=== PATIENT | female | born 1990 | race American Indian/Alaskan Native ===

== ENCOUNTER 2020-06-26 16:52 | Emergency (ER) | payer SELFPAY ==
[2020-06-26 17:15] VITALS: BP 138/68
[2020-06-26] MEDS ORDERED: KETOROLAC 30 MG/1 ML INJ IM ONE (17:45)
--- NOTE | 2020-06-26 17:49 | Emergency Department Report ---
ED Back Pain/Injury HPI - General Chief Complaint: Back Pain/Injury Stated Complaint: BACK/CARLITA LEG PAIN Source: patient Limitations: No Limitations - History of Present Illness Initial Comments: 30-year-old -[place] female presents to the emergency room reporting back pain for a week. Patient reports that the pain shoots down both legs is worse with sitting to standing or standing from long periods. Patient states she has been taking ibuprofen and has used [id number] liniment with no true results. Patient denies any injury. Patient reports she has an IUD in place. Complaint: back pain Onset/Timin -: week(s) Similar Symptoms Previously: No Radiation: buttocks, left leg, right leg Severity scale (0 -10): 10 Quality: burning, sharp, stabbing Consistency: constant Improves With: none Worsens With: movement Context: unknown Associated Symptoms: denies other symptoms - Related Data Previous Rx's Medication Instructions Recorded Last Taken Type Diclofenac Sodium 50 mg PO BID #20 tablet. 06/26/20 Unknown Rx Allergies Allergy/AdvReac Type Severity Reaction Status Date / Time No Known Allergies Allergy Unverified 06/26/20 17:09 ED Review of Systems ROS: Stated complaint: BACK/CARLITA LEG PAIN Other details as noted in HPI Comment: All other systems reviewed and negative ED Past Medical Hx - Past Medical History Previous Medical History?: No - Surgical History Past Surgical History?: No - Social History Smoking Status: Never Smoker Substance Use Type: Alcohol - Medications Home Medications: Home Medications Medication Instructions Recorded Confirmed Last Taken Type Diclofenac Sodium 50 mg PO BID #20 tablet. 06/26/20 Unknown Rx ED Physical Exam - General Limitations: No Limitations General appearance: alert, in no apparent distress - Head Head exam: Present: atraumatic, normocephalic - Eye Eye exam: Present: normal appearance - ENT ENT exam: Present: mucous membranes moist - Neck Neck exam: Present: normal inspection, full ROM - Respiratory Respiratory exam: Absent: accessory muscle use - Cardiovascular Cardiovascular Exam: Present: regular rate, normal rhythm. Absent: systolic murmur, diastolic murmur, rubs, gallop - Extremities Exam Extremities exam: Present: full ROM - Expanded Back Exam Expanded Back exam: Sciatic Notch Tenderness: Left, Right, Positive Straight Leg Raise: Left, Right - Neurological Exam Neurological exam: Present: alert, oriented X3 - Psychiatric Psychiatric exam: Present: normal affect, normal mood - Skin Skin exam: Present: warm, dry, intact, normal color. Absent: rash ED Course Vital Signs 06/26/20 17:12 Temperature 99 F Pulse Rate 100 H Respiratory 20 Rate Blood Pressure 138/68 O2 Sat by Pulse 100 Oximetry ED Medical Decision Making - Medical Decision Making 30-year-old -[place] female presents to the emergency room reporting back pain for a week. Patient reports that the pain shoots down both legs is worse with sitting to standing or standing from long periods. Patient states she has been taking ibuprofen and has used [id number] liniment with no true results. Patient denies any injury. Patient reports she has an IUD in place. Patient will be given a Toradol injection. Patient is discharged home on diclofenac's and to follow-up with a primary care provider. Handout for sciatica will be given. Critical care attestation.: If time is entered above; I have spent that time in minutes in the direct care of this critically ill patient, excluding procedure time. ED Disposition Clinical Impression: Lumbar back pain with radiculopathy affecting lower extremity Sciatica Qualifiers: Laterality: bilateral Qualified Code(s): M54.31 - Sciatica, right side; M54.32 - Sciatica, left side Disposition: - TO HOME OR SELFCARE Is pt being admited?: No Does the pt Need Aspirin: No Condition: Stable Instructions: Sciatica Additional Instructions: Take medication as prescribed. Do exercises and stretches as illustrated. Follow-up with your primary care provider. Prescriptions: Diclofenac Sodium 50 mg PO BID #20 tablet. Referrals: [facility] [Provider Group] - 3-5 Days Forms: Work/School Release Form(ED)
== END 2020-06-26 18:10 | disposition home or self-care (01) ==
LOC: ED 16:52
DX: M54.16 Radiculopathy, lumbar region (principal); M54.30 Sciatica, unspecified side; Z79.899 Other long term (current) drug therapy
CPT/HCPCS: 96372; 99282; J1885